=== PATIENT | female | born 1940 | race Caucasian/White ===

== ENCOUNTER 2018-03-11 16:48 | Inpatient (IN) | payer MEDICARE, BC ==
[2018-03-11] MEDS ORDERED: Pantoprazole IV* 40 MG IV ONE (17:14)
--- NOTE | 2018-03-11 17:25 | ED ---
GI/ HPI - HPI Summary HPI Summary: The pt is a 78 y/o female with a hx of GI bleeds presenting to [facility] c/o black stools since today morning. She has had 4-5 bowel movements today, all of which were dark in color. The pt denies N/V/D and abd pain, and pedal edema. She takes baby ASA daily and denies the use of blood thinners. PMHx: Stenting x6 , cardiac valve, double by-pass surgery. Home Medications Medication Instructions Recorded Confirmed Type Clopidogrel TAB* [Plavix TAB*] 75 mg PO DAILY 03/10/13 03/11/18 History Nitroglycerin TAB 0.4 MG* 0.4 mg SL Q5M PRN 10/03/13 03/11/18 History Amoxicillin PO (*) [Amoxicillin 2,000 mg PO DAILY PRN 03/11/18 03/11/18 History 500 MG CAP*] Aspirin EC TAB* [Ecotrin EC Low 81 mg PO DAILY 03/11/18 03/11/18 History Dose 81 MG*] Calcium Carbonate/Vitamin D3 2 tab PO DAILY 03/11/18 03/11/18 History [Calcium 600 + Vit D Tablet] Cyanocobalamin (Vitamin B-12) 5,000 mcg PO DAILY 03/11/18 03/11/18 History [Vitamin B12] Gabapentin CAP(*) [Neurontin 100 100 mg PO BID 03/11/18 03/11/18 History mg CAP(*)] Levothyroxine TAB* [Synthroid TAB*] 125 mcg PO DAILY 03/11/18 03/11/18 History Losartan Potassium 50 mg PO DAILY 03/11/18 03/11/18 History Multivitamins/Minerals TAB* 1 tab PO DAILY 03/11/18 03/11/18 History [Theragran/minerals TAB*] Pantoprazole TAB (NF) [Protonix 40 mg PO DAILY PRN 03/11/18 03/11/18 History TAB (NF)] Ropinirole HCl [Requip] 0.5 mg PO 1200 03/11/18 03/11/18 History Rosuvastatin (NF) [Crestor (NF)] 10 mg PO DAILY 03/11/18 03/11/18 History Spironolactone/HCTZ 25-25 MG* 1 tab PO DAILY 03/11/18 03/11/18 History [Aldactazide 25-25*] Vit C/E/Zn/Coppr/Lutein/Zeaxan 1 cap PO BID 03/11/18 03/11/18 History [Preservision Areds 2 Softgel] rOPINIRole TAB* [Requip TAB*] 1 mg PO BEDTIME 03/11/18 03/11/18 History - History of Current Complaint Chief Complaint: EDGIBleed Time Seen by Provider: 03/11/18 17:06 Stated Complaint: BLOOD IN STOOL Hx Obtained From: Patient Onset/Duration: Started Hours Ago - Today morning, Still Present Timing: Constant Severity: Mild Current Severity: Mild Pain Intensity: 1 Associated Signs and Symptoms: Negative: Nausea, Vomiting, Diarrhea, Abdominal Pain Aggravating Factor(s): Nothing Alleviating Factor(s): Nothing - Allergy/Home Medications Allergies/Adverse Reactions: Allergies Allergy/AdvReac Type Severity Reaction Status Date / Time Adhesive Tape Allergy Rash And Verified 01/15/17 09:08 Itching iron AdvReac Diarrhea Verified 03/11/18 16:52 lisinopril AdvReac Coughing Verified 03/11/18 16:52 metformin AdvReac Diarrhea Verified 03/11/18 16:52 Home Medications: Home Medications Amoxicillin PO (*) [Amoxicillin 500 MG CAP*] 2,000 mg PO DAILY PRN 03/11/18 [ History Confirmed 03/11/18] Aspirin EC TAB* [Ecotrin EC Low Dose 81 MG*] 81 mg PO DAILY 03/11/18 [History Confirmed 03/11/18] Calcium Carbonate/Vitamin D3 [Calcium 600 + Vit D Tablet] 2 tab PO DAILY [History Confirmed 03/11/18] Cyanocobalamin (Vitamin B-12) [Vitamin B12] 5,000 mcg PO DAILY 03/11/18 [ History Confirmed 03/11/18] Gabapentin CAP(*) [Neurontin 100 mg CAP(*)] 100 mg PO BID 03/11/18 [History Confirmed 03/11/18] Levothyroxine TAB* [Synthroid TAB*] 125 mcg PO DAILY 03/11/18 [History Confirmed 03/11/18] Losartan Potassium 50 mg PO DAILY 03/11/18 [History Confirmed 03/11/18] Multivitamins/Minerals TAB* [Theragran/minerals TAB*] 1 tab PO DAILY 03/11/18 [ History Confirmed 03/11/18] Pantoprazole TAB (NF) [Protonix TAB (NF)] 40 mg PO DAILY PRN 03/11/18 [History Confirmed 03/11/18] Ropinirole HCl [Requip] 0.5 mg PO 1200 03/11/18 [History Confirmed 03/11/18] Rosuvastatin (NF) [Crestor (NF)] 10 mg PO DAILY 03/11/18 [History Confirmed ] Spironolactone/HCTZ 25-25 MG* [Aldactazide 25-25*] 1 tab PO DAILY 03/11/18 [ History Confirmed 03/11/18] Vit C/E/Zn/Coppr/Lutein/Zeaxan [Preservision Areds 2 Softgel] 1 cap PO BID 03/11 [History Confirmed 03/11/18] rOPINIRole TAB* [Requip TAB*] 1 mg PO BEDTIME 03/11/18 [History Confirmed ] PMH/Surg Hx/FS Hx/Imm Hx Previously Healthy: No Endocrine/Hematology History: Reports: Hx Diabetes - SINCE LOOSING [place], Hx Thyroid Disease - ON DAILY MEDS, Hx Anemia - [place] NOW, Other Endocrine/ Hematological Disorders - Pt states "I do not have diabetes anymore because I had gastric bypass" Cardiovascular History: Reports: Hx Coronary Artery Disease - DR WARE, Hx Hypertension - ON DAILY MEDS, Hx Valvular Heart Disease, Other Cardiovascular Problems/Disorders - [place] VALVE BYPASS SURGERY 02/2013 Respiratory History: Reports: Hx Sleep Apnea - [place] SINCE LOSSING WEIGHT Musculoskeletal History: Reports: Hx Back Problems, Other Musculoskeletal History - Pt states has restless leg syndrome Denies: Hx Osteoporosis Sensory History: Reports: Hx Cataracts - CATARACTS, Hx Contacts or Glasses - GLASSES, Hx Glaucoma - Hx OF NO DROPS Opthamlomology History: Reports: Hx Cataracts - CATARACTS, Hx Contacts or Glasses - GLASSES, Hx Glaucoma - Hx OF NO DROPS Psychiatric History: Reports: Hx Depression - ON DAILY MED - Cancer History Cancer Type, Location and Year: None reported Hx Chemotherapy: No Hx Radiation Therapy: No - Surgical History Surgery Procedure, Year, and Place: 2007 GASTRIC BYPASS [place], 02/2013 CARDIAC BYPASS [place], 3 c-sections, cataracts, hemorrhoidectomy, carpal tunnel Hx Anesthesia Reactions: No Infectious Disease History: No Infectious Disease History: Denies: Traveled Outside the [place] in Last 30 Days - Family History Known Family History: Negative: Cardiac Disease, Hypertension, Diabetes - Social History Occupation: Retired Lives: With Family Alcohol Use: None Substance Use Type: Reports: None Smoking Status (MU): Former Smoker Type: Cigarettes Amount Used/How Often: 1PPD 30 YRS Have You Smoked in the Last Year: No Review of Systems Positive: Other - Black stools . Negative: Abdominal Pain, Vomiting, Diarrhea, Nausea Positive: no symptoms reported Negative: Edema All Other Systems Reviewed And Are Negative: Yes Physical Exam - Summary Physical Exam Summary: Appearance: Well appearing, no pain distress Skin: warm, dry, reflects adequate perfusion Head/face: normal Eyes: EOMI, GARRETT, pale conjuctiva ENT: normal Neck: supple, non-tender Respiratory: CTA, breath sounds present Cardiovascular: RRR, pulses symmetrical Abdomen: non-tender, soft Musculoskeletal: normal, strength/ROM intact Neuro: normal, sensory motor intact, A&Ox3 Triage Information Reviewed: Yes Vital Signs On Initial Exam: Initial Vitals Temp Pulse Resp BP Pulse Ox 98.0 F 89 16 152/64 100 03/11/18 16:50 03/11/18 16:50 03/11/18 16:50 03/11/18 16:50 03/11/18 16:50 Vital Signs Reviewed: Yes Diagnostics - Vital Signs Vital Signs Temp Pulse Resp BP Pulse Ox 03/11/18 16:50 98.0 F 89 16 152/64 100 - Laboratory Result Diagrams: 03/11/18 17:28 03/11/18 17:28 Lab Statement: Any lab studies that have been ordered have been reviewed, and results considered in the medical decision making process. - Radiology CXR Radiology Interpretation Completed By: Radiologist Summary of Radiographic Findings: IMPRESSION: Vague density at the left lung base could be due to atelectasis,consolidation and/or pleural effusion. The ED physician reviewed this radiology report. Re-Evaluation - Re-Evaluation First Eval Re-Evaluation Time: 18:46 Change: Improved Comment: I discussed the results and discharge plan with the pt. GIGU Course/Dx - Course Course Of Treatment: A 78 year-old F presents to the ED with a CC of black stools since today morning. She has had 4-5 bowel movements today, all of which were dark in color. The pt denies N/V/D and abd pain, and pedal edema. A physical exam revealed pale conjunctiva.A CXR reveals a vague density at the left lung base that could be due to atelectasis,. Consolidation and/or pleural effusion. In the ED course, pt was given Pantoprazole 80 mg IV which improved the symptoms. I discussed the care of the pt with Dr. Marquez- fur vault attendant who agreed to see the patient. The hospitalist- Dr. Meza agreed to admit the pt. Patient will be admitted with a final Dx of GI bleed and anemia. Pt is agreeable with this plan. Allergies noted. - Diagnoses Differential Diagnoses - Female: Other - gi bleeding/anemia Provider Diagnoses: GI (gastrointestinal bleed), Anemia - Physician Notifications Discussed Care Of Patient With: Wilber Marquez - Nutrition Manager Time Discussed With Above Provider: 18:31 Instructed by Provider To: Admit As Inpatient - Dr. Marquez agreed to see the pt as in patient. 18:40- Dr. Meza- ospitalist agreed to admit the pt. Discharge - Sign-Out/Discharge Documenting (check all that apply): Patient Departure - Admit - Discharge Plan Condition: Stable Disposition: ADMITTED TO [facility] Referrals: Jose Brandt MD [Primary Care Provider] - - Billing Disposition and Condition Condition: STABLE Disposition: Admitted to [facility] - Attestation Statements Document Initiated by Erich: Yes Documenting Scribe: Corinne Early Provider For Whom Erich is Documenting (Include Credential): Dr. Shahriar Garrido MD Scribe Attestation: Corinne Hanks scribed for Dr. Shahriar Garrido MD on 03/11/18 at 1855. Scribe Documentation Reviewed: Yes Provider Attestation: The documentation as recorded by the Corinne jacobsen accurately reflects the service I personally performed and the decisions made by , Dr. Shahriar Garrido MD Status of Scribe Document: Viewed
[2018-03-11 18:03] LABS: ABS Basophils 0 10^3/ul (0-0.2); ABS Eosinophils 0 10^3/ul (0-0.6); ABS Lymphocytes 0.8 10^3/ul (1.0-4.8); ABS Monocytes 0.6 10^3/ul (0-0.8); ABS Neutrophils 7.5 10^3/ul (1.5-7.7); ABS Nucleated RBC 0 10^3/ul; Eosinophil % 0.1 %; Hematocrit 25 % (35-47); Hemoglobin 8.5 g/dl (12.0-16.0); Lymphocyte % 8.5 %; Mean Corpuscular HGB Conc 34 g/dl (31-36); Mean Corpuscular Hemoglobin 30 pg (27-31); Mean Corpuscular Volume 88 fL (80-97); Mean Platelet Volume 9.2 fL (7.4-10.4); Nucleated Red Blood Cells % 0; Platelet Count 141 10^3/ul (150-450); Red Blood Count 2.87 10^6/ul (4.00-5.40); Red Cell Distribution Width 14 % (10.5-15); White Blood Count 8.9 10^3/ul (3.5-10.8)
[2018-03-11 18:11] LABS: Activated Partial Thrombo Time 29.1 seconds (26.0-36.3); INR 1.09 (0.77-1.02)
[2018-03-11 18:26] LABS: Albumin 3.8 g/dL (3.2-5.2); Albumin/Globulin Ratio 1.6 (1-3); BUN/Creatinine Ratio 35.3 (8-20); EGFR Non-African American 21.9 (>60); Globulin 2.4 g/dL (2-4); Potassium 4.4 mmol/L (3.5-5.0); Total Bilirubin 0.3 mg/dL (0.2-1.0); Total Protein 6.2 g/dL (6.4-8.9)
[2018-03-11 18:50] LABS: Urine Appearance Clear; Urine Bacteria Absent (Absent); Urine Bilirubin Negative (Negative); Urine Blood Negative (Negative); Urine Color Straw; Urine Glucose Negative (Negative); Urine Ketones Negative (Negative); Urine Nitrite Negative (Negative); Urine Protein Negative (Negative); Urine Red Blood Cell 1+(3-5/hpf) (Absent); Urine Specific Gravity 1.014 (1.010-1.030); Urine Urobilinogen Negative (Negative); Urine White Blood Cell Trace(0-5/hpf) (Absent)
[2018-03-11] MEDS ORDERED: Ondansetron INJ* 2 MG/ML VIAL IV PRN (20:28)
[2018-03-11] MEDS: Pantoprazole* 80 mg IN NS 80 MG/250 ML BAG IVPB SCH (21:25)
[2018-03-11 21:30] LABS: Hematocrit 24 % (35-47); Hemoglobin 8.2 g/dl (12.0-16.0)
[2018-03-11] MEDS: Gabapentin CAP(*) 100 MG PO SCH (22:26)
[2018-03-11] MEDS: Ropinirole TAB* 0.5 MG TAB PO SCH (22:26)
--- NOTE | 2018-03-11 23:58 | HP ---
CC: Dr. Brandt.* ADMISSION HISTORY AND PHYSICAL: DATE OF ADMISSION: 03/11/18 PRIMARY CARE PROVIDER: Dr. Brandt. HEALTHCARE PROXY: Her . CODE STATUS: DNR. Discussed with the patient, her , and her daughter. New MOLST completed. SOURCE OF INFORMATION: History obtained from interview with the patient and her family. RELIABILITY: Excellent. CHIEF COMPLAINT: Black stools. HISTORY OF PRESENT ILLNESS: This is a 78-year-old female with past medical history including gastric bypass in 2007 as well as a self-reported history of duodenal bleed possibly 7 years prior, additionally CAD, status post 2 vessel CABG in 2012 and an aortic valve replacement, She had been in her usual state of health until of yesterday started feeling more rundown and tired, thinks she may be ate a little less, but still was up and went to synagogue, did some baking, although do not consume the products that she made. Today, she awoke and noted dark black stool described as tarry around 7 a.m., which continued and occurred 8 to 10 times in frequency, more like diarrhea before presenting to the emergency room. Of note, the patient was previously a nurse for 30 years and has the expected medical vocabulary coincidence with her experience. She had no abdominal pain with moving her bowels. She had no shortness of breath, but did indicate some diaphoresis as well as increasing fatigue throughout the day and described as feeling more tired and sleeping. She denies chest pain, but did indicate sensation of feeling lightheadedness, like she was hanging on to things, but no loss of consciousness or near syncope. She denies nausea and vomiting, but no headache or blurry vision. She identified subjective fevers with her diaphoresis, but checked her temperature and did not have an objective temperature at home. She did check her blood pressure at home, indicated it was in the systolics of 90s over diastolics 60s. She checks her blood pressure usually weekly with systolics in the 120s to 130s. She indicates no changes in her medications including no addition of NSAIDs to her aspirin or Plavix. No abdominal pain as indicated above, stable weight for many years. No night sweats. Her last EGD and colonoscopy were in November 2016 with a noted difficult colonoscopy, but was able to advance to the sigmoid colon with noted severe diverticulosis. At her baseline, she can usually walk several blocks and is limited by pain in her hips. At her baseline, she has 1 to 2 bowel movements per day. She was permitted to hold her Plavix for her last procedure in 2017 by her childcare administrator. PAST MEDICAL HISTORY: Include CAD, status post multiple percutaneous intervention and a 2-vessel CABG in 2012. She has had no additional coronary interventions since her 2-vessel CABG. She had an aortic valve replacement at that time in 2018. She had a gastric bypass in 2007 as well as a cholecystectomy and appendectomy. She has a history of hypertension, hyperlipidemia, hypothyroidism, and restless leg syndrome. She previously had type 2 diabetes, which was cured after her gastric bypass. She has had cataract repair, trigger thumb repair, carpal tunnel release, hemorrhoidectomy, multiple C-sections x3. She has a history of depression in remission, anemia, and severe sigmoid diverticulosis. Chronic kidney disease, stage 4. MEDICATIONS: Taken from the patient's medication list includes: 1. Rosuvastatin 10 mg daily. 2. PreserVision AREDS 2 soft gel 1 cap twice daily. 3. Nitroglycerin 0.4 mg sublingual every 5 minutes as needed for chest pain. 4. Ropinirole 1 mg at bedtime. 5. Ropinirole 0.5 mg at noon p.r.n. 6. Calcium carbonate with vitamin D3 two tabs daily. 7. Aldactazide 25/25 one tab daily. 8. Levothyroxine 125 mg daily. 9. Pantoprazole 40 mg daily, reportedly as needed. 10. Gabapentin 100 mg twice daily. 11. Clopidogrel 75 mg daily. 12. Losartan 50 mg daily. 13. Amoxicillin p.r.n. for dental work. 14. Cyanocobalamin 5000 mcg daily. 15. Multivitamins 1 tab daily. 16. Aspirin 81 mg. ALLERGIES: To ADHESIVE TAPE, IRON, LISINOPRIL, and METFORMIN. FAMILY HISTORY: Father with CAD. Mother with type 2 diabetes. No history of cancer. No history of other GI bleeding. SOCIAL HISTORY: Former tobacco, quit 30 years prior to presentation, has a 15- year pack history. 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 REVIEW OF SYSTEMS: As indicated above. Otherwise, all other systems negative. PHYSICAL EXAMINATION GENERAL: Obese female, lying 30 degrees in bed, interactive, pleasant, in no apparent distress. VITAL SIGNS: When seen by this author, 100/57, heart rate is 85, respiratory rate is between 16 and 20. She is 98% on room air, T-max is 98 in the emergency room. HEENT: Her oropharynx is clear. She has mildly dry mucous membranes. Sclerae are anicteric. She has no conjunctival pallor. LUNGS: Clear. HEART: She has a regular rate and rhythm. She has a soft 1-2/6 early peaking systolic ejection murmur, loudest in her right upper sternal border. ABDOMEN: Generally soft, has some mild tenderness to deep palpation in her epigastrium. Positive bowel sounds. No rebound or guarding. EXTREMITIES: Warm and well perfused. She has less than 2-second cap refill. She has no clubbing, cyanosis or edema. NEUROLOGIC: She is alert and oriented x3. Her cranial nerves II through XII are intact. PSYCHIATRIC: She has no apparent anxiety, agitation or depression. DIAGNOSTIC STUDIES/LAB DATA: Her labs are reviewed. BUN of 77, creatinine of 2.18, lactic acid 1.0, lipase 45, INR 1.09. Her hemoglobin is 8.5 decreased from 10.5 in November of 2017. White blood cell count 8.9, platelets 141. Chest x-ray, impression: Vague density of the left lung base could be due to atelectasis consolidation, and/or pleural effusion. ASSESSMENT PLAN: This is a 78-year-old female with past medical history of gastric bypass, potentially duodenal bleed several years prior, coronary artery disease, status post coronary artery bypass graft as well as aortic valve replacement, presenting with dark black tarry stools associated with lightheadedness with concern for upper gastrointestinal bleed. 1. Upper gastrointestinal bleed. Discussed the care with Dr. Marquez, who will see the patient in the morning. The patient is remaining n.p.o. She has received 80 mg of IV Protonix, so I will start a Protonix drip now. She has one IV placed now. I have discussed with the nurse and asked her to place a second. Serial H and Hs every 4 hours. Hold the Plavix and continue aspirin for history of extensive coronary artery disease. I discussed with the patient that she will likely need blood transfusion if her hemoglobin falls below 8. We discussed the risks and benefits of blood transfusion, which will be detailed further on the paper form to accompany any blood transfusion, should she need it tonight. Maintain on telemetry to monitor heart rate, which was currently not tachycardic. 2. Hypertension. Hold all antihypertensive medications. 3. Chronic kidney disease. Dose medications appropriately. Withhold nephrotoxic medications. 4. Coronary artery disease. Continue with aspirin and transition to Crestor to atorvastatin. The patient is apparently not on a beta-raina at this time. We will not initiate one at this time. 5. Type 2 diabetes. Reportedly controlled, status post gastric bypass. 6. Fluids, electrolytes, and nutrition. NPO. 7. Code status: Do not resuscitate, discussed with the patient and her . We will fill out MOLST at this time. [id number]/[facility] #: [id number] [facility]
[2018-03-12 01:39] LABS: Hematocrit 23 % (35-47); Hemoglobin 7.9 g/dl (12.0-16.0)
[2018-03-12] MEDS: Ropinirole TAB* 0.5 MG TAB PO PRN ×2 (02:41→14:00)
[2018-03-12] MEDS: Levothyroxine TAB* 125 MCG TAB PO SCH (05:04)
[2018-03-12 06:51] LABS: Hematocrit 25 % (35-47); Hemoglobin 8.2 g/dl (12.0-16.0)
[2018-03-12 07:04] LABS: Calcium 8.6 mg/dL (8.6-10.3); Potassium 4.1 mmol/L (3.5-5.0)
[2018-03-12 07:10] LABS: BUN/Creatinine Ratio 30.4 (8-20); EGFR Non-African American 18.7 (>60)
[2018-03-12] MEDS: Pantoprazole* 80 mg IN NS 80 MG/250 ML BAG IVPB SCH (07:39)
[2018-03-12 09:39] LABS: Hematocrit 25 % (35-47); Hemoglobin 8.7 g/dl (12.0-16.0)
[2018-03-12] MEDS ORDERED: Midazolam* 1 MG/ML 10 ML VIAL (10 MG) ONE (12:28)
[2018-03-12] MEDS ORDERED: fentaNYL* 50 MCG/ML 2 ML VIAL (100 MCG VIAL) ONE (12:28)
[2018-03-12] MEDS: Aspirin EC TAB* 81 MG TAB.EC PO SCH (13:53)
[2018-03-12] MEDS: Calcium/Vitamin D TAB 250/125* TAB PO SCH (13:53)
[2018-03-12] MEDS: Atorvastatin* 20 MG TAB PO SCH (13:53)
--- NOTE | 2018-03-12 13:53 | PN ---
Subjective Date of Service: 03/12/18 Interval History: HOSPITALIST PROGRESS NOTE Patient seen and examined at bedside. Care reviewed and d/w Nyla Peralta RN. She feels better this AM. Had 2 small black BMs earlier today, still feels a little bloated, but denies abdominal pain. Family History: Unchanged from Admission Social History: Unchanged from Admission Past Medical History: Unchanged from Admission Objective Active Medications: Aspirin (Aspirin Ec Tab*) 81 mg PO DAILY REPLACED BY [facility] Atorvastatin Calcium (Lipitor*) 20 mg PO DAILY REPLACED BY [facility]; Protocol Calcium/Vitamin D (Oscal D Tab 250/125*) 4 tab PO DAILY REPLACED BY [facility] Gabapentin (Neurontin Cap(*)) 100 mg PO BID REPLACED BY [facility] Last Admin: 03/11/18 22:26 Dose: Not Given Pantoprazole Sodium (Protonix Iv Bag*) 80 mg in 250 mls @ 25 mls/hr IVPB Q10H REPLACED BY [facility] Last Admin: 03/12/18 07:39 Dose: 25 mls/hr Levothyroxine Sodium (Synthroid Tab*) 125 mcg PO DAILY@0600 REPLACED BY [facility] Last Admin: 03/12/18 05:04 Dose: Not Given Multivitamins/Minerals (Theragran/Minerals Tab*) 1 tab PO DAILY REPLACED BY [facility] Ondansetron HCl (Zofran Inj*) 4 mg IV Q4H PRN PRN Reason: NAUSEA/VOMITING Pantoprazole Sodium (Protonix Tab (Nf)) 20 mg PO DAILY REPLACED BY [facility] Ropinirole HCl (Requip Tab*) 0.5 mg PO 1200 PRN PRN Reason: SPASMS Last Admin: 03/12/18 02:41 Dose: 0.5 mg Ropinirole HCl (Requip Tab*) 1 mg PO BEDTIME REPLACED BY [facility] Last Admin: 03/11/18 22:26 Dose: Not Given Vital Signs - 8 hr 03/12/18 03/12/18 03/12/18 08:00 08:26 11:02 Temperature 98.4 F 98.4 F Pulse Rate 109 73 Respiratory 20 18 16 Rate Blood Pressure 133/51 132/46 (mmHg) O2 Sat by Pulse 100 98 Oximetry Oxygen Devices in Use Now: None Appearance: Elderly obese lady lying in bed in NAD. Eyes: No Scleral Icterus Ears/Nose/Mouth/Throat: Mucous Membranes Moist Neck: Trachea Midline Respiratory: Symmetrical Chest Expansion and Respiratory Effort, Clear to Auscultation Cardiovascular: NL Sounds; No Murmurs; No JVD, RRR Abdominal: NL Sounds; No Tenderness; No Distention Neurological: Alert and Oriented x 3, NL Muscle Strength and Tone Result Diagrams: 03/12/18 09:31 03/12/18 06:22 Assess/Plan/Problems-Billing Assessment: Mrs Alonzo is a 78yo F with PMH of CAD s/p PCI and CABG, AVR, s/p gastric bypass 2007, HTN, HLD, hypothyroidism, restless leg syndrome, depression, CKD stage 4, who presented to ED with c/o black stools, admitted for a probable upper GI bleed. - Patient Problems (1) Upper GI bleed Comment: - Suspect upper source with melena and BUN elevation not proportional to her creatinine. - Continue Protonix drip. - Plan for EGD today. (2) Blood loss anemia Comment: - S/p 1 PRBC - last Hb 8.7. - Continue to monitor H/H. (3) HTN (hypertension) Comment: - Hypotensive on admission - hold Losartan and Aldactone. (4) CAD (coronary artery disease) Comment: - Stable. - Continue Aspirin and statin. - Plavix on hold. (5) CKD (chronic kidney disease) stage 4, GFR 15-29 ml/min Comment: - Monitor renal function. (6) DVT prophylaxis Comment: - Pharmacological prophylaxis contraindicated in the setting of GI bleed. - SCDs. (7) DNR (do not resuscitate) Status and Disposition: Inpatient.
[2018-03-12] MEDS: Gabapentin CAP(*) 100 MG PO SCH ×2 (13:54→21:15)
[2018-03-12] MEDS: Multivitamins/Minerals TAB PO SCH (13:54)
[2018-03-12 20:11] LABS: Hematocrit 24 % (35-47)
[2018-03-12] MEDS: Ropinirole TAB* 0.5 MG TAB PO SCH (21:14)
--- NOTE | 2018-03-13 02:54 | PRO ---
DATE: 03/12/18 - ROOM #420 REFERRING PHYSICIAN: Jose Brandt MD * PROCEDURE: Upper gastrointestinal endoscopy with extended views into efferent jejunal limb (enteroscopy). 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 She developed melena the evening of 03/10/18. Her hemoglobin was in the 8s and she has been transfused 1 unit. At this time, she feels comfortable and has only had a small soft dark movement today. There has been no vomiting. ENDOSCOPIST: Dr. Marquez. MEDICATIONS: Midazolam 4.5, fentanyl 50. FINDINGS: She is a morbidly obese, elderly woman, slight pale, in no cardiorespiratory distress. She is positioned left side down 20 degrees elevation and moderate sedation induced with sequential doses of midazolam and fentanyl. EGD: Larynx - narrow, symmetric views. Esophagus - easily entered and the mucosa is normal in the upper, mid and lower esophagus with no erosions, scarring or Loving's change. The EG junction is at 39, appearing normally snug. Gastric pouch - normal without any bleeding or erythema. No erosions were seen. Retroflex views towards the cardia appeared normal. The anastomotic area was wide open and without any ulcers or erosions at the rim of the anastomosis. Blind limb - short and normal. Efferent limb - normal, without any erythema or erosions, and surveyed for about 30 cm. At that point, complex anastomotic arrangement was seen. There appeared to be blind limb component to the left and straight on. The one on the left had a suture. No blood was seen and no erosions were present. A lumen extending further down could only be obtained by scope tip to flexion to the right when at the level of the double barrelled blind limbs. Scope tip could be inserted down about 15 cm. There was no abnormality seen. The lumen of this apparent jejunal efferent area did not have any blood or bile. IMPRESSION: 1. Normal anatomy, status post gastrojejunal bariatric bypass. 2. Patent anatomy without any erosive change in area of jejunal resection and reanastomosis. 3. Gastrointestinal bleed - clinically an upper source and would continue to hold Plavix for at least 3 weeks. She had intended to travel to [place] in 9 days. Resuming the Plavix, it would seem, should be deferred to at least she has settled back there. [id number]/[facility] #: [id number] [facility]
[2018-03-13] MEDS: Levothyroxine TAB* 125 MCG TAB PO SCH (05:51)
[2018-03-13 07:28] LABS: ABS Basophils 0 10^3/ul (0-0.2); ABS Eosinophils 0.1 10^3/ul (0-0.6); ABS Lymphocytes 0.8 10^3/ul (1.0-4.8); ABS Monocytes 0.4 10^3/ul (0-0.8); ABS Neutrophils 3.9 10^3/ul (1.5-7.7); ABS Nucleated RBC 0 10^3/ul; Eosinophil % 1.1 %; Hematocrit 24 % (35-47); Hemoglobin 8.2 g/dl (12.0-16.0); Lymphocyte % 15.6 %; Mean Corpuscular HGB Conc 34 g/dl (31-36); Mean Corpuscular Hemoglobin 30 pg (27-31); Mean Corpuscular Volume 88 fL (80-97); Nucleated Red Blood Cells % 0.1; Platelet Count 99 10^3/ul (150-450); Red Blood Count 2.71 10^6/ul (4.00-5.40); Red Cell Distribution Width 15 % (10.5-15); White Blood Count 5.2 10^3/ul (3.5-10.8)
[2018-03-13 07:34] LABS: Calcium 8.7 mg/dL (8.6-10.3); Potassium 4.5 mmol/L (3.5-5.0)
[2018-03-13 07:55] VITALS: BP 136/48
[2018-03-13] MEDS ORDERED: CMCS Pantoprazole TAB (NF) 40 MG TAB PO SCH (09:00)
[2018-03-13] MEDS ORDERED: Losartan TAB* 25 MG PO SCH (09:00)
[2018-03-13] MEDS: Ropinirole TAB* 0.5 MG TAB PO PRN (09:15)
[2018-03-13] MEDS: Atorvastatin* 20 MG TAB PO SCH (09:15)
[2018-03-13] MEDS: Multivitamins/Minerals TAB PO SCH (09:16)
[2018-03-13] MEDS: Gabapentin CAP(*) 100 MG PO SCH (09:16)
[2018-03-13] MEDS: Calcium/Vitamin D TAB 250/125* TAB PO SCH (09:16)
[2018-03-13] MEDS: Aspirin EC TAB* 81 MG TAB.EC PO SCH (09:16)
--- NOTE | 2018-03-13 23:41 | DS ---
CC: Dr. Brandt; Dr. Supa Shane; Dr. Lidia Saucedo, [facility]; Dr. Marquez * DISCHARGE SUMMARY: DATE OF ADMISSION: 03/11/18 DATE OF DISCHARGE: 03/13/18 PRIMARY CARE PROVIDER: Dr. Brandt. ECHOCARDIOGRAPH TECHNICIAN: Dr. Marquez. DISCHARGE DIAGNOSES: 1. Upper gastrointestinal bleed. 2. Acute blood loss anemia. SECONDARY DIAGNOSES: 1. Coronary artery disease, status post percutaneous coronary intervention and coronary artery bypass graft. 2. Status post aortic valve replacement (biological). 3. Status post gastric bypass in 2007. 4. Hypertension. 5. Hyperlipidemia. 6. Hypothyroidism. 7. Restless legs syndrome. 8. Depression. 9. Chronic kidney disease, stage 4. MEDICATION LIST: 1. Amoxicillin 2000 mg p.o. daily as needed for dental procedures. 2. Aspirin 81 mg p.o. daily. 3. Calcium plus vitamin D 2 tablets p.o. daily. 4. Vitamin B12 5000 mcg p.o. daily. 5. Gabapentin 100 mg p.o. b.i.d. 6. Levothyroxine 125 mcg p.o. daily at 6 a.m. 7. Losartan 50 mg p.o. daily. 8. Multivitamin 1 tablet p.o. daily. 9. Nitroglycerin 0.4 mg sublingual q.5 minutes p.r.n. chest pain. 10. Ropinirole 0.5 mg p.o. at noon and 1 mg p.o. at bedtime. 11. Rosuvastatin 10 mg p.o. daily. 12. Aldactazide 25/25 one tablet p.o. daily. 13. PreserVision AREDS 1 capsule p.o. b.i.d. Medication change: Pantoprazole was changed to a standing order of 40 mg p.o. daily. Medications discontinued: Plavix was discontinued for now, but plan is to resume it in 3 weeks if she has no further episodes of bleeding. This will have to be decided on her appointment with Dr. Brandt on 03/18/18. HOSPITAL COURSE: Mrs. Alonzo is a 78-year-old lady with a past medical history as stated above, who presented to the emergency room on 03/11/18 with complaints of black, tarry stools. For more details about her presentation, I refer you to her history and physical. On admission, the patient was found to have a hemoglobin of 8.5 that dropped to 7.9 and she received 1 PRBC, and hemoglobin on the day of discharge is 8.2. Her stool for occult blood was positive and she was seen in consultation by Gastroenterology (Dr. Marquez) who recommended an upper endoscopy that shows normal anatomy, status post gastrojejunal bariatric bypass. Patent anatomy without any erosive change in the area of jejunal resection and reanastomosis. Clinically, her bleed was an upper source considering the disproportionate elevation of BUN in relation to creatinine. Dr. Marquez's recommendation is to hold Plavix for at least 3 weeks, and since the patient is going to travel to [place] next week, he felt that the Plavix should be resumed when she is settled down there. The patient has an appointment to follow up with Dr. Brandt on 03/18/18. This appointment was already scheduled prior to her admission. The plan is for her to have a CBC done on 03/15/18, the results will be sent to Dr. Brandt, and on that appointment, he will decide if her Plavix should be resumed in 3 weeks as long as she does not show any signs of further bleeding or further drop on her H and H. On her return from [place], she will follow up with Dr. Marquez as outpatient. The patient's creatinine is at baseline at 2.36 and her BUN is trending down from 77 to 59 on discharge. She is medically stable for discharge today. PHYSICAL EXAMINATION: Vital Signs: Temperature 98.1, heart rate 61, respiratory rate 15, oxygen saturation is 96% on room air, blood pressure is 136 /48. General: The patient is a pleasant, elderly lady, sitting up in bed in no acute distress. CVS: Normal S1 and S2, regular rate and rhythm. Chest: Breath sounds bilaterally, no added sounds. Abdomen: Obese, bowel sounds are present, nontender. Neuro: She is alert and oriented x3, able to move all 4 extremities. DIET: Heart healthy diet. ACTIVITIES: As tolerated. DISPOSITION: To home. STATUS WHILE IN THE HOSPITAL: Inpatient. The patient received education regarding signs and symptoms that will prompt visit to the emergency room when she is in [place]. Please keep in mind this is a summarized version of this patient's hospital stay. If you need more information, please feel free to call me at or please obtain the full medical records. TIME SPENT: Approximately 45 minutes were spent to complete this discharge. [id number]/[facility] #: [id number] [facility]
== END 2018-03-13 10:58 | disposition home or self-care (01) | DRG 378 ==
LOC: ED 16:48 → MED 20:22
PROVIDERS: ADMIT Internal Medicine; ATTEND Internal Medicine
PROC: 30233N1 Transfusion of Nonautologous Red Blood Cells into Peripheral Vein, Percutaneous Approach (ICD-10-PCS; principal; 2018-03-12)
PROC: 0DJ08ZZ Inspection of Upper Intestinal Tract, Via Natural or Artificial Opening Endoscopic (ICD-10-PCS; 2018-03-12)
DX: K92.1 Melena (principal); D62 Acute posthemorrhagic anemia; N18.4 Chronic kidney disease, stage 4 (severe); I25.10 Atherosclerotic heart disease of native coronary artery without angina pectoris; G47.30 Sleep apnea, unspecified; E11.39 Type 2 diabetes mellitus with other diabetic ophthalmic complication; H42 Glaucoma in diseases classified elsewhere; E03.9 Hypothyroidism, unspecified; F32.9 Major depressive disorder, single episode, unspecified; E78.5 Hyperlipidemia, unspecified; G25.81 Restless legs syndrome; Z66 Do not resuscitate; E66.01 Morbid (severe) obesity due to excess calories; E11.22 Type 2 diabetes mellitus with diabetic chronic kidney disease; I12.9 Hypertensive chronic kidney disease with stage 1 through stage 4 chronic kidney disease, or unspecified chronic kidney disease; Z82.49 Family history of ischemic heart disease and other diseases of the circulatory system; Z83.3 Family history of diabetes mellitus; Z90.49 Acquired absence of other specified parts of digestive tract; Z87.891 Personal history of nicotine dependence; Z95.1 Presence of aortocoronary bypass graft; Z88.8 Allergy status to other drugs, medicaments and biological substances; Z68.37 Body mass index [BMI] 37.0-37.9, adult; Z98.84 Bariatric surgery status; Z98.42 Cataract extraction status, left eye; Z98.41 Cataract extraction status, right eye; Z79.01 Long term (current) use of anticoagulants
CPT/HCPCS: 36415; 71045; 80048; 80053; 81003; 81015; 82272; 83605; 83690; 85014; 85018; 85025; 85610; 85730; 86850; 86900; 86901; 86922; 87086; 99156; 99157; 99284; A9270-GY; J2250; J3010; P9040

== ENCOUNTER 2022-12-19 10:56 | Inpatient (IN) ==
[2022-12-19 15:30] LABS: ABS Lymphocytes 0.7 10^3/uL (1.0-4.8); ABS Monocytes 0.5 10^3/uL (0.0-0.9); ABS Neutrophils 5.7 10^3/uL (1.5-7.6); ABS Nucleated RBC 0.01 10^3/ul; Eosinophil % 0.5 %; Hematocrit 32.8 % (35-45); Hemoglobin 11.3 g/dL (11.5-14.3); Lymphocyte % 10.4 %; Mean Corpuscular Hgb Conc 34.5 g/dL (31-36); Mean Corpuscular Volume 84.1 fL (80-97); Mean Platelet Volume 9.1 fL (7.5-11.2); Nucleated Red Blood Cells % 0.1 /100 WBC (0.0-0.4); Platelet Count 143 10^3/uL (150-450); Red Cell Distribution Width 14.7 % (12-17); White Blood Count 6.9 10^3/uL (3.8-11.8)
[2022-12-19 15:48] LABS: Calcium 9.3 mg/dL (8.6-10.3); Potassium 4.1 mmol/L (3.5-5.0); Total Bilirubin 0.5 mg/dL (0.2-1.0)
[2022-12-19 15:50] LABS: Activated Partial Thrombo Time 35.9 seconds (26.0-38.0); INR 1.16 (0.83-1.13)
[2022-12-19 15:54] LABS: Albumin/Globulin Ratio 1.4 (1-3); C Reactive Protein 1.68 mg/L (<8.01); Creatinine, Serum 2.16 mg/dL (0.51-0.95); Globulin 2.8 g/dL (2-4); Total Protein 6.8 g/dL (6.4-8.9); eGFR CKD-EPI 22.5 (>60)
[2022-12-19 16:26] LABS: Urine Appearance Cloudy; Urine Bilirubin Negative (Negative); Urine Blood Negative (Negative); Urine Color Yellow; Urine Glucose Negative (Negative); Urine Ketones Negative (Negative); Urine Nitrite Negative (Negative); Urine Protein 3+(>=500 mg/dL) (Negative); Urine Urobilinogen Negative (Negative)
[2022-12-19 16:31] LABS: Urine Bacteria 1+ (Absent); Urine Red Blood Cell 1+(3-5/hpf) (Absent); Urine Squamous Epithelial Cell Present (Absent); Urine White Blood Cell 2+(11-20/hpf) (Absent)
[2022-12-19 17:17] LABS: High Sensitivity Troponin 1 Hr 23 pg/mL (<15)
[2022-12-19] MEDS ORDERED: Al Hydrox/Mg Hydrox/Simet LIQ 30 ML UDC PO PRN (19:44)
[2022-12-19] MEDS ORDERED: Ondansetron 4 mg VIAL 2 MG/ML 2 ml VIAL IV PRN (19:44)
[2022-12-19] MEDS ORDERED: Polyethylene Glycol 3350 17 GM PACKET PO PRN (19:44)
[2022-12-19] MEDS ORDERED: Senna TAB 8.6 mg TAB PO PRN (19:44)
[2022-12-19] MEDS ORDERED: Lactated Ringers 1000 ml BAG 1,000 ML IV SCH (21:00)
[2022-12-19] MEDS: Enoxaparin 30 MG/0.3 ML SYR SUBCUT SCH (22:10)
[2022-12-20 00:59] LABS: Urine Creatinine Concentration 397.6 mg/dL (20.00-320.00)
[2022-12-20 05:46] LABS: ABS Lymphocytes 0.9 10^3/uL (1.0-4.8); ABS Monocytes 0.5 10^3/uL (0.0-0.9); ABS Neutrophils 4.8 10^3/uL (1.5-7.6); Eosinophil % 0.5 %; Hematocrit 31.2 % (35-45); Hemoglobin 10.8 g/dL (11.5-14.3); Mean Corpuscular Hgb Conc 34.5 g/dL (31-36); Mean Corpuscular Volume 83.9 fL (80-97); Mean Platelet Volume 8.9 fL (7.5-11.2); Platelet Count 123 10^3/uL (150-450); Red Blood Count 3.71 10^6/uL (3.63-4.92); Red Cell Distribution Width 14.9 % (12-17); White Blood Count 6.2 10^3/uL (3.8-11.8)
[2022-12-20 06:21] LABS: Calcium 9.2 mg/dL (8.6-10.3); Creatinine, Serum 2.27 mg/dL (0.51-0.95); Potassium 3.8 mmol/L (3.5-5.0); eGFR CKD-EPI 21.2 (>60)
[2022-12-20] MEDS: Aspirin EC 81 mg TAB.EC (enteric coated) PO SCH (08:26)
[2022-12-20] MEDS ORDERED: levETIRAcetam IV 1,500 MG in NS 0.9% 100 ml BAG 100 ML IVPB ONE (11:32)
[2022-12-20 12:06] LABS: TSH Ultra Thyroid Stim Horm 1.87 mcIU/mL (0.34-5.60)
[2022-12-20] MEDS ORDERED: levETIRAcetam IV 1,500 MG in NS 0.9% 100 ml BAG 100 ML IVPB SCH (15:00)
[2022-12-20] MEDS: Enoxaparin 30 MG/0.3 ML SYR SUBCUT SCH (20:53)
[2022-12-21] MEDS ORDERED: levETIRAcetam 1000MG IVPREMIX 1,000 MG/100 ML BAG IVPB SCH ×2 (01:00)
[2022-12-21 05:33] LABS: ABS Lymphocytes 0.9 10^3/uL (1.0-4.8); ABS Monocytes 0.4 10^3/uL (0.0-0.9); ABS Neutrophils 4.7 10^3/uL (1.5-7.6); ABS Nucleated RBC 0.01 10^3/ul; Eosinophil % 0.4 %; Hematocrit 29.2 % (35-45); Hemoglobin 10.2 g/dL (11.5-14.3); Lymphocyte % 15.1 %; Mean Corpuscular Hemoglobin 29.6 pg (27-33); Mean Corpuscular Hgb Conc 34.9 g/dL (31-36); Mean Corpuscular Volume 84.9 fL (80-97); Nucleated Red Blood Cells % 0.1 /100 WBC (0.0-0.4); Platelet Count 112 10^3/uL (150-450); Red Blood Count 3.44 10^6/uL (3.63-4.92); Red Cell Distribution Width 14.5 % (12-17); White Blood Count 6.1 10^3/uL (3.8-11.8)
[2022-12-21 05:49] LABS: Calcium 8.7 mg/dL (8.6-10.3); Creatinine, Serum 2.17 mg/dL (0.51-0.95); Magnesium 2.2 mg/dL (1.9-2.7); Potassium 4.3 mmol/L (3.5-5.0); eGFR CKD-EPI 22.3 (>60)
[2022-12-21] MEDS: Levothyroxine 100 MCG/5 ML VIAL IV SCH (06:08)
[2022-12-21] MEDS: Aspirin EC 81 mg TAB.EC (enteric coated) PO SCH (08:53)
[2022-12-21] MEDS ORDERED: Lactated Ringers 1000 ml BAG 1,000 ML IV SCH (14:00)
[2022-12-21] MEDS: Enoxaparin 30 MG/0.3 ML SYR SUBCUT SCH (19:41)
[2022-12-22] MEDS: Levothyroxine 100 MCG/5 ML VIAL IV SCH (06:00)
[2022-12-22 07:01] LABS: ABS Lymphocytes 0.7 10^3/uL (1.0-4.8); ABS Monocytes 0.4 10^3/uL (0.0-0.9); ABS Neutrophils 5.1 10^3/uL (1.5-7.6); Eosinophil % 0.4 %; Hemoglobin 11.2 g/dL (11.5-14.3); Lymphocyte % 10.8 %; Mean Corpuscular Hemoglobin 29.1 pg (27-33); Mean Corpuscular Hgb Conc 34.8 g/dL (31-36); Mean Corpuscular Volume 83.7 fL (80-97); Mean Platelet Volume 9.3 fL (7.5-11.2); Nucleated Red Blood Cells % 0.1 /100 WBC (0.0-0.4); Platelet Count 129 10^3/uL (150-450); Red Blood Count 3.83 10^6/uL (3.63-4.92); Red Cell Distribution Width 14.4 % (12-17); White Blood Count 6.2 10^3/uL (3.8-11.8)
[2022-12-22 07:21] LABS: Calcium 9.2 mg/dL (8.6-10.3); Creatinine, Serum 2.02 mg/dL (0.51-0.95); Potassium 3.9 mmol/L (3.5-5.0); eGFR CKD-EPI 24.3 (>60)
[2022-12-22] MEDS: Aspirin EC 81 mg TAB.EC (enteric coated) PO SCH (09:21)
[2022-12-22] MEDS: Enoxaparin 30 MG/0.3 ML SYR SUBCUT SCH (19:50)
[2022-12-23 04:50] LABS: ABS Lymphocytes 0.7 10^3/uL (1.0-4.8); ABS Monocytes 0.5 10^3/uL (0.0-0.9); Eosinophil % 0.6 %; Hematocrit 31.2 % (35-45); Mean Corpuscular Hemoglobin 29.5 pg (27-33); Mean Corpuscular Hgb Conc 35.1 g/dL (31-36); Mean Corpuscular Volume 84.1 fL (80-97); Mean Platelet Volume 9.5 fL (7.5-11.2); Nucleated Red Blood Cells % 0.1 /100 WBC (0.0-0.4); Platelet Count 136 10^3/uL (150-450); Red Blood Count 3.71 10^6/uL (3.63-4.92); Red Cell Distribution Width 14.7 % (12-17); White Blood Count 5.3 10^3/uL (3.8-11.8)
[2022-12-23 05:06] LABS: Calcium 9.2 mg/dL (8.6-10.3); Creatinine, Serum 1.95 mg/dL (0.51-0.95); Magnesium 2.1 mg/dL (1.9-2.7); Potassium 3.7 mmol/L (3.5-5.0); eGFR CKD-EPI 25.4 (>60)
[2022-12-23] MEDS: Levothyroxine 100 MCG/5 ML VIAL IV SCH (05:10)
[2022-12-23] MEDS: Aspirin EC 81 mg TAB.EC (enteric coated) PO SCH (08:39)
[2022-12-23] MEDS: Enoxaparin 30 MG/0.3 ML SYR SUBCUT SCH (20:26)
[2022-12-24 04:47] LABS: ABS Lymphocytes 0.8 10^3/uL (1.0-4.8); ABS Monocytes 0.5 10^3/uL (0.0-0.9); Eosinophil % 0.8 %; Hematocrit 30.7 % (35-45); Hemoglobin 10.9 g/dL (11.5-14.3); Lymphocyte % 15.6 %; Mean Corpuscular Hemoglobin 29.2 pg (27-33); Mean Corpuscular Hgb Conc 35.3 g/dL (31-36); Mean Corpuscular Volume 82.7 fL (80-97); Platelet Count 137 10^3/uL (150-450); Red Blood Count 3.72 10^6/uL (3.63-4.92); Red Cell Distribution Width 14.8 % (12-17); White Blood Count 5.4 10^3/uL (3.8-11.8)
[2022-12-24 05:04] LABS: Calcium 9.2 mg/dL (8.6-10.3); Creatinine, Serum 1.92 mg/dL (0.51-0.95); Magnesium 2.1 mg/dL (1.9-2.7); Potassium 3.6 mmol/L (3.5-5.0); eGFR CKD-EPI 25.9 (>60)
[2022-12-24] MEDS: Levothyroxine 100 MCG/5 ML VIAL IV SCH (06:23)
[2022-12-24] MEDS: Aspirin EC 81 mg TAB.EC (enteric coated) PO SCH (08:42)
[2022-12-24] MEDS: Enoxaparin 30 MG/0.3 ML SYR SUBCUT SCH (19:56)
[2022-12-25] MEDS: Levothyroxine 100 MCG/5 ML VIAL IV SCH (05:29)
[2022-12-25] MEDS: Aspirin EC 81 mg TAB.EC (enteric coated) PO SCH (08:31)
[2022-12-25 08:56] VITALS: BP 180/62
== END 2022-12-25 12:00 | disposition home or self-care (01) | DRG 92 ==
LOC: ED 10:56 → EDHOLD 10:56 → SUATTDRO 19:45 → ICU 12-20 17:40
PROVIDERS: ADMIT Internal Medicine; ATTEND Internal Medicine Critical Care Medicine

== ENCOUNTER 2023-08-09 11:21 | Inpatient (IN) ==
[2023-08-09 12:00] LABS: ABS Basophils 0.1 10^3/uL (0.0-0.1); ABS Lymphocytes 0.2 10^3/uL (1.0-4.8); ABS Monocytes 0.4 10^3/uL (0.0-0.9); ABS Neutrophils 17.7 10^3/uL (1.5-7.6); Hematocrit 28.7 % (35-45); Hemoglobin 9.6 g/dL (11.5-14.3); Lymphocyte % 1.1 %; Mean Corpuscular Hemoglobin 26.8 pg (27-33); Mean Corpuscular Hgb Conc 33.3 g/dL (31-36); Mean Corpuscular Volume 80.4 fL (80-97); Platelet Count 218 10^3/uL (150-450); Red Blood Count 3.57 10^6/uL (3.63-4.92); Red Cell Distribution Width 17.1 % (12-17); White Blood Count 18.3 10^3/uL (3.8-11.8)
[2023-08-09] MEDS: Acetaminophen IV 1 GM/100ML 1,000 MG/100 ML BAG IV ONE (12:00)
[2023-08-09 12:09] LABS: Activated Partial Thrombo Time 33.6 seconds (26.0-38.0); INR 1.88 (0.83-1.13)
[2023-08-09] MEDS: Piperacillin/Tazobac 3.375 BAG 3.375 GM/100 ML BAG IV ONE (12:09)
[2023-08-09] MEDS: Lactated Ringers 1000 ml BAG 1,000 ML IV SCH (12:32)
[2023-08-09 12:37] LABS: Urine Appearance Turbid; Urine Bilirubin Negative (Negative); Urine Blood Negative (Negative); Urine Color Yellow; Urine Glucose Negative (Negative); Urine Ketones Negative (Negative); Urine Nitrite Negative (Negative); Urine Protein 2+ (>=100 mg/dL) (Negative); Urine Specific Gravity 1.014 (1.002-1.030); Urine Urobilinogen Negative (Negative); Urine pH 5.5 (5.0-8.0)
[2023-08-09 12:39] LABS: Urine Bacteria 3+ /HPF (Absent); Urine Red Blood Cell Trace(0-2/hpf) /HPF (0-Trace); Urine Squamous Epithelial Cell Present /HPF (Absent); Urine White Blood Cell Trace(0-5/hpf) /HPF (0-Trace)
[2023-08-09 12:55] LABS: C Reactive Protein 153.06 mg/L (<8.01); Calcium 8.6 mg/dL (8.6-10.3); Creatinine, Serum 2.91 mg/dL (0.51-0.95); Potassium 4.1 mmol/L (3.5-5.0); eGFR CKD-EPI 15.6 (>60)
[2023-08-09 13:00] LABS: Albumin 3.3 g/dL (3.2-5.2); Albumin/Globulin Ratio 1.2 (1-3); Globulin 2.7 g/dL (2-4)
[2023-08-09 13:19] LABS: High Sensitivity Troponin 1 Hr 631 pg/mL (<15)
[2023-08-09 15:43] LABS: PCO2 Arterial 36 mmHg (35-45); PO2 Arterial 101 mmHg (80-100)
[2023-08-09] MEDS: Furosemide 40 mg/4 ml IV VIAL IV SLOW PU ONE (15:56)
[2023-08-09 16:25] LABS: Magnesium 1.9 mg/dL (1.9-2.7)
[2023-08-09] MEDS: Magnesium Sulfate 2 gm BAG 2 GM/50 ML BAG IVPB ONE (16:54)
[2023-08-09] MEDS ORDERED: Acetaminophen IV 1 GM/100ML 1,000 MG/100 ML BAG IV PRN (16:55)
[2023-08-09] MEDS ORDERED: Azithromycin 500 mg/250 ml NS 500 MG/250 ML BAG IVPB SCH (18:00)
[2023-08-09] MEDS: cefTRIAXone 1 gm/50 mL D5W 1 GM/50 ML BAG IV SCH (18:07)
[2023-08-09] MEDS: Doxycycline 100 MG in NS 0.9% 250 ML BAG IVPB SCH (19:25)
[2023-08-09] MEDS: Norepinephrine 4 MG/250mL D5W 4,000 MCG/250 ML BAG IV SCH (19:40)
[2023-08-09 19:55] LABS: High Sensitivity Troponin 3 Hr 1186 pg/mL (<15)
[2023-08-09] MEDS: Heparin 5000 UNITS/ML 1 mL VIAL IV SCH (20:56)
[2023-08-09] MEDS: Heparin DRIP 25,000 UNITS BAG 25,000 UNITS/250 ML BAG IV SCH (21:00)
[2023-08-09 21:04] LABS: ABS Lymphocytes 0.3 10^3/uL (1.0-4.8); ABS Monocytes 0.5 10^3/uL (0.0-0.9); ABS Neutrophils 14.2 10^3/uL (1.5-7.6); ABS Nucleated RBC 0.01 10^3/ul; Hemoglobin 8.6 g/dL (11.5-14.3); Lymphocyte % 2.2 %; Mean Corpuscular Hemoglobin 26.8 pg (27-33); Mean Corpuscular Hgb Conc 33.3 g/dL (31-36); Mean Corpuscular Volume 80.4 fL (80-97); Mean Platelet Volume 9.6 fL (7.5-11.2); Platelet Count 166 10^3/uL (150-450); Red Blood Count 3.23 10^6/uL (3.63-4.92); Red Cell Distribution Width 17.1 % (12-17)
[2023-08-09 21:54] LABS: Creatinine, Serum 3.22 mg/dL (0.51-0.95); eGFR CKD-EPI 13.8 (>60)
[2023-08-09] MEDS ORDERED: Heparin 5000 UNITS/ML 1 mL VIAL SUBCUT SCH (22:00)
[2023-08-09 22:42] LABS: High Sensitivity Troponin 1 Hr 1232 pg/mL (<15)
[2023-08-10] MEDS: cefTRIAXone 1 gm/50 mL D5W 1 GM/50 ML BAG IV ONE (01:30)
[2023-08-10 04:06] LABS: ABS Basophils 0.1 10^3/uL (0.0-0.1); ABS Lymphocytes 0.5 10^3/uL (1.0-4.8); ABS Monocytes 0.6 10^3/uL (0.0-0.9); ABS Neutrophils 15.7 10^3/uL (1.5-7.6); Hematocrit 26.4 % (35-45); Hemoglobin 8.8 g/dL (11.5-14.3); Lymphocyte % 2.8 %; Mean Corpuscular Hemoglobin 26.6 pg (27-33); Mean Corpuscular Hgb Conc 33.3 g/dL (31-36); Platelet Count 171 10^3/uL (150-450); Red Cell Distribution Width 17.2 % (12-17); White Blood Count 16.8 10^3/uL (3.8-11.8)
[2023-08-10 04:28] LABS: High Sensitivity Troponin 3 Hr 903 pg/mL (<15)
[2023-08-10 04:57] LABS: ALT 472 U/L (7-52); Albumin/Globulin Ratio 1.1 (1-3); Alkaline Phosphatase 117 U/L (35-149); Anion Gap 15 mmol/L (2-16); Blood Urea Nitrogen 55 mg/dL (6-24); CO2 Carbon Dioxide 25 mmol/L (22-32); Calcium 8.4 mg/dL (8.6-10.3); Chloride 97 mmol/L (101-111); Creatinine, Serum 3.31 mg/dL (0.51-0.95); Globulin 2.8 g/dL (2-4); Glucose 154 mg/dL (70-100); Magnesium 2.5 mg/dL (1.9-2.7); Sodium 137 mmol/L (135-145); Total Bilirubin 0.5 mg/dL (0.2-1.0); Total Protein 5.8 g/dL (6.4-8.9); eGFR CKD-EPI 13.4 (>60)
[2023-08-10 06:58] LABS: Potassium Redraw 3.6 mmol/L (3.5-5.0)
[2023-08-10] MEDS ORDERED: Sulfur Hexaflouride MICROSPHR 25 MG VIAL ONE (08:47)
[2023-08-10] MEDS: Furosemide 40 mg/4 ml IV VIAL IV SLOW PU ONE ×2 (09:32→14:38)
[2023-08-10] MEDS: Aspirin EC 81 mg TAB.EC (enteric coated) PO SCH (09:33)
[2023-08-10] MEDS: KCL 20 MEQ/100 ML IVPREMIX 20 MEQ/100 ML BAG IV SCH (09:33)
[2023-08-10] MEDS ORDERED: Midazolam 5 mg/5 ml VIAL 1 mg/ml 5 ml VIAL (5 mg) ONE (10:25)
[2023-08-10] MEDS ORDERED: Flumazenil 0.5 mg/5 ml 0.1 MG/ML 5 ml VIAL ONE (10:25)
[2023-08-10] MEDS ORDERED: fentaNYL 100 mcg/2 ml 50 MCG/ML VIAL ONE (10:25)
[2023-08-10] MEDS ORDERED: Naloxone 0.4 mg VIAL 0.4 mg/ml 1 ml VIAL ONE (10:25)
[2023-08-10] MEDS: Ondansetron 4 mg VIAL 2 MG/ML 2 ml VIAL IV PRN (20:14)
[2023-08-10] MEDS: Ondansetron 4 mg VIAL 2 MG/ML 2 ml VIAL ONE (22:15)
[2023-08-10] MEDS: cefTRIAXone 2 gm/50 mL D5W 2 GM/50 ML BAG IV SCH (23:18)
[2023-08-11 05:05] LABS: ABS Lymphocytes 0.4 10^3/uL (1.0-4.8); ABS Monocytes 0.6 10^3/uL (0.0-0.9); ABS Neutrophils 17.2 10^3/uL (1.5-7.6); Hematocrit 26.2 % (35-45); Hemoglobin 8.6 g/dL (11.5-14.3); Mean Corpuscular Hemoglobin 26.6 pg (27-33); Mean Corpuscular Hgb Conc 32.7 g/dL (31-36); Mean Corpuscular Volume 81.2 fL (80-97); Mean Platelet Volume 10.6 fL (7.5-11.2); Platelet Count 171 10^3/uL (150-450); Red Blood Count 3.22 10^6/uL (3.63-4.92); Red Cell Distribution Width 17.3 % (12-17); White Blood Count 18.2 10^3/uL (3.8-11.8)
[2023-08-11 05:31] LABS: Albumin/Globulin Ratio 1.1 (1-3); Calcium 8.5 mg/dL (8.6-10.3); Creatinine, Serum 3.39 mg/dL (0.51-0.95); Globulin 2.8 g/dL (2-4); Magnesium 2.4 mg/dL (1.9-2.7); Potassium 4.1 mmol/L (3.5-5.0); Total Bilirubin 0.4 mg/dL (0.2-1.0); Total Protein 5.8 g/dL (6.4-8.9)
[2023-08-11] MEDS: Furosemide 40 mg/4 ml IV VIAL IV SLOW PU ONE (09:43)
[2023-08-12 09:27] LABS: ABS Lymphocytes 0.3 10^3/uL (1.0-4.8); ABS Monocytes 0.5 10^3/uL (0.0-0.9); ABS Nucleated RBC 0.01 10^3/ul; Hematocrit 25.7 % (35-45); Hemoglobin 8.3 g/dL (11.5-14.3); Lymphocyte % 2.3 %; Mean Corpuscular Hemoglobin 26.3 pg (27-33); Mean Corpuscular Hgb Conc 32.2 g/dL (31-36); Mean Corpuscular Volume 81.6 fL (80-97); Mean Platelet Volume 9.7 fL (7.5-11.2); Nucleated Red Blood Cells % 0.1 %/100WBC (0.0-0.8); Platelet Count 186 10^3/uL (150-450); Red Blood Count 3.15 10^6/uL (3.63-4.92); Red Cell Distribution Width 16.8 % (12-17); White Blood Count 12.8 10^3/uL (3.8-11.8)
[2023-08-12 10:05] LABS: Calcium 8.5 mg/dL (8.6-10.3); Creatinine, Serum 3.71 mg/dL (0.51-0.95); Magnesium 2.5 mg/dL (1.9-2.7); Potassium 3.8 mmol/L (3.5-5.0); eGFR CKD-EPI 11.7 (>60)
[2023-08-13 06:01] LABS: ABS Lymphocytes 0.3 10^3/uL (1.0-4.8); ABS Monocytes 0.6 10^3/uL (0.0-0.9); ABS Neutrophils 10.5 10^3/uL (1.5-7.6); Hematocrit 25.5 % (35-45); Hemoglobin 8.4 g/dL (11.5-14.3); Lymphocyte % 2.7 %; Mean Corpuscular Hemoglobin 26.9 pg (27-33); Mean Corpuscular Hgb Conc 32.9 g/dL (31-36); Mean Corpuscular Volume 81.7 fL (80-97); Platelet Count 191 10^3/uL (150-450); Red Blood Count 3.12 10^6/uL (3.63-4.92); Red Cell Distribution Width 16.8 % (12-17); White Blood Count 11.4 10^3/uL (3.8-11.8)
[2023-08-13 06:18] LABS: Calcium 8.7 mg/dL (8.6-10.3); Creatinine, Serum 3.78 mg/dL (0.51-0.95); Magnesium 2.5 mg/dL (1.9-2.7); Potassium 3.3 mmol/L (3.5-5.0); eGFR CKD-EPI 11.4 (>60)
[2023-08-13] MEDS: Potassium Chlor 20 meq TAB.ER PO ONE (09:02)
[2023-08-14 05:38] LABS: ABS Lymphocytes 0.3 10^3/uL (1.0-4.8); ABS Monocytes 0.7 10^3/uL (0.0-0.9); ABS Neutrophils 11.4 10^3/uL (1.5-7.6); Eosinophil % 0.1 %; Hematocrit 26.6 % (35-45); Hemoglobin 8.8 g/dL (11.5-14.3); Lymphocyte % 2.6 %; Mean Corpuscular Hgb Conc 32.9 g/dL (31-36); Mean Corpuscular Volume 81.8 fL (80-97); Mean Platelet Volume 9.7 fL (7.5-11.2); Platelet Count 197 10^3/uL (150-450); Red Blood Count 3.25 10^6/uL (3.63-4.92); White Blood Count 12.4 10^3/uL (3.8-11.8)
[2023-08-14 06:24] LABS: Anion Gap 19 mmol/L (2-16); Blood Urea Nitrogen 83 mg/dL (6-24); CO2 Carbon Dioxide 24 mmol/L (22-32); Calcium 8.8 mg/dL (8.6-10.3); Chloride 103 mmol/L (101-111); Creatinine, Serum 3.73 mg/dL (0.51-0.95); Glucose 79 mg/dL (70-100); Potassium 4.1 mmol/L (3.5-5.0); Sodium 146 mmol/L (135-145); eGFR CKD-EPI 11.6 (>60)
[2023-08-14 06:37] LABS: Vitamin B12 > 1450 pg/mL (180-914)
[2023-08-14] MEDS ORDERED: Iron Sucrose 20 MG/ML 5 ML VIAL IV PUSH SCH (10:00)
[2023-08-14] MEDS: Iron Sucrose 200 MG in NS 0.9% 100 ml IVPB SCH (11:31)
[2023-08-14 18:08] VITALS: BP 128/49
[2023-08-16] MEDS ORDERED: cefTRIAXone 1 gm/50 mL D5W 1 GM/50 ML BAG IV SCH (11:00)
[2023-08-16] MEDS: cefTRIAXone 2 gm/50 mL D5W 2 GM/50 ML BAG IV SCH (16:35)
[2023-08-19] MEDS ORDERED: Senna TAB 8.6 mg TAB PO PRN (10:00)
[2023-08-22] MEDS: Ondansetron ODT 4 mg TAB 4 MG TAB PO PRN (21:13)
== END 2023-08-23 10:10 | disposition home or self-care (01) | DRG 871 ==
LOC: ED 11:21 → EDHOLD 15:42 → SUATTDRO 15:42 → ICU 16:55 → MED 08-12 15:20
PROVIDERS: ADMIT Internal Medicine Pulmonary Disease; ATTEND Internal Medicine

== ENCOUNTER 2023-08-23 21:16 | Observation (INO) ==
[2023-08-23 21:28] VITALS: BP 0/0
[2023-08-23] MEDS ORDERED: LORazepam 2 mg VIAL 1 ml IV PUSH ONE (23:43)
[2023-08-23] MEDS ORDERED: Lorazepam PYXIS KEY PRN (23:43)
[2023-08-23] MEDS ORDERED: LORazepam 2 MG/ML 1 mL Syringe ONE (23:56)
[2023-08-24] MEDS ORDERED: Polyethylene Glycol 3350 17 GM PACKET PO PRN (00:46)
[2023-08-24] MEDS ORDERED: Atropine 1% (ORAL/SL) 15 ML BTL SL PRN (00:46)
[2023-08-24] MEDS ORDERED: Morphine ORAL CONCENTRATE 5 MG/0.25 ML ORAL.SYRIN PO PRN (00:46)
[2023-08-24] MEDS ORDERED: Senna TAB 8.6 mg TAB PO PRN (00:46)
[2023-08-24] MEDS ORDERED: Ondansetron ODT 4 mg TAB 4 MG TAB SL PRN (00:46)
[2023-08-24] MEDS: LORazepam 2 MG/ML 1 mL Syringe IV ONE (00:50)
[2023-08-24] MEDS: Haloperidol 5 mg/ml SDV IV/IM 5 MG/ML AMP IV SLOW PU ONE (03:16)
[2023-08-24] MEDS ORDERED: Lorazepam PYXIS KEY PRN (06:28)
[2023-08-24] MEDS ORDERED: Morphine 2 MG/ML SYRINGE IV PRN (06:29)
[2023-08-24] MEDS: LORazepam 2 MG/ML 1 mL Syringe IM PRN (07:30)
== END 2023-08-24 12:09 | disposition home or self-care (01) ==
LOC: EDHOLD 21:16 → ED 21:16 → EDHOLD 08-24 12:08
PROVIDERS: ADMIT Student in an Organized Health Care Education/Training Program; ATTEND Internal Medicine